=== PATIENT | female | born 1955 ===

== ENCOUNTER 2025-03-18 11:00 | Day surgery (SDC) | payer OTHER ==
[2025-02-18 09:25] VITALS: BP 160/75
[2025-02-18 09:32] LABS: URINE APPEARANCE Clear; URINE BILIRRUBIN Negative (NEGATIVE); URINE BLOOD Negative; URINE COLOR Yellow; URINE GLUCOSE Negative (NEGATIVE); URINE KETONE Negative (NEGATIVE); URINE LEUKOCYTE Moderate; URINE NITRATE Negative; URINE PROTEIN Negative (NEGATIVE); URINE UROBILINOGEN 0.2 E.U./dl
[2025-02-18 09:32] LABS: BASO % 0.3 % (0.1-1.2); EOS # 0.28 (0.04-0.54); EOS % 7.2 % (0.7-7.0); LYMPH # 1.52 (1.18-3.74); LYMPH % 39.2 % (19.3-53.1); MEAN PLATELET VOLUME 9.80 fl (9.4-12.4); MONO # 0.32 (0.24-0.82); MONO % 8.2 % (4.7-12.5); NEUT # 1.74 (1.56-6.13); NEUT % 44.8 % (34.0-71.1); RED CELL DISTRIBUTION WIDTH 13.8 % (11.6-14.4)
[2025-02-18 09:37] LABS: URINE BACTERIA 223.2 uL (0.0-1933); URINE EPITHELIAL CELLS 15.9 uL (0.0-38.8); URINE WBC 45.0 uL (0.0-23.2)
[2025-02-18 09:45] LABS: URINE CAST 0.14 uL (0.0-1.40); URINE RBC 0.2 uL (0.0-20.8)
[2025-02-18 09:52] LABS: INR 1.01
[2025-02-18 10:34] LABS: ALT/SGPT 60.0 U/L (12-78); AST/SGOT 31.0 U/L (15-37); BILIRUBIN TOTAL 0.26 mg/dL (0.3-1.2); BUN CREA RATIO 22.0 (7.0-25.0); CREATININE SERUM 0.6 mg/dL (0.55-1.02); GFR 98.83; GLOBULINA 4.5 G/DL (2.4-3.5); GLUCOSE FASTING 84.0 mg/dL (65-100); OSMOLALITY SERUM 282.0 MOSM/KG (275-295)
[~2025-03-18] VITALS: Ht 158.8 cm; Wt 67.1 kg
[~2025-03-18 11:00] MED LIST: SYNTHROID88 MCG PO
[2025-03-18] MEDS ORDERED: POVIDONE-IODINE 118 ML BOTT TOP ONE (12:05)
[2025-03-18] MEDS ORDERED: CEFOXITIN SODIUM 2,000 MG VIAL IV ONE (14:56)
[2025-03-18] MEDS ORDERED: RINGERS SOLUTION,LACTATED 1,000 ML IV SCH (20:00)
== END 2025-03-18 19:45 | disposition home or self-care (01) ==
LOC: CIR.AMB 11:00
PROVIDERS: ATTEND Obstetrics & Gynecology
DX: N84.0 Polyp of corpus uteri (principal); N95.0 Postmenopausal bleeding; Z88.0 Allergy status to penicillin; Z88.6 Allergy status to analgesic agent